=== PATIENT | female | born 1955 | race Caucasian/White ===

== ENCOUNTER 2016-11-10 09:17 | Inpatient (IN) | payer BC ==
[~2016-11-10] VITALS: Ht 165.1 cm; Wt 52.5 kg
[2016-11-10] MEDS ORDERED: ASPIR-TRIN325 M1 PO (09:40)
[2016-11-10 10:43] LABS: HEMATOCRIT 43.1 % (36.0-46.0); MCH 30.4 PG (29.0-34.0); MCHC 34.8 G/DL (30.0-36.0); MCV 87.2 FL (83-99); MEAN PLAT.VOLUME 8.6 uM^3 (9.5-12.4); PLATELET COUNT 349 K/uL (156-360); RBC DIS.WIDTH-CV 13.4 % (11.8-14.6); RBC DIS.WIDTH-SD 42.3 % (39-53); RED BLOOD COUNT 4.94 M/uL (3.80-5.20); WHITE BLOOD COUNT 8.6 K/uL (4.1-10.2)
[2016-11-10 10:52] LABS: CHLORIDE 107 mEq/L (99-109); POTASSIUM 4.4 mEq/L (3.7-5.4); SODIUM 138 mEq/L (136-147)
[2016-11-10 10:53] LABS: D-DIMER ELISA 0.17 mg/L FEU (< 0.57); GLUCOSE 80 mg/dL (70-99)
[2016-11-10 10:55] LABS: ANION GAP 15 MEQ/L (2-14)
[2016-11-10 10:57] LABS: GFR ESTIMATE (CALCULATED) > 59 mL/min/
[2016-11-10 10:58] LABS: UREA NITROGEN (BUN) 18 mg/dL (9-23)
[2016-11-10 11:02] LABS: TROP-I INTERPRETATION NEGATIVE; TROPONIN-I < 0.01 ng/mL (0.0-0.30)
[2016-11-10 15:00] VITALS: BP 124/57
[2016-11-10 19:32] VITALS: BP 138/63
[2016-11-10 23:56] VITALS: BP 128/59
[2016-11-11 03:33] VITALS: BP 110/53
[2016-11-11 08:03] VITALS: BP 120/61
[2016-11-11 14:30] VITALS: BP 122/70
[2016-11-12 00:26] VITALS: BP 114/59
[2016-11-12 16:07] VITALS: BP 117/59
[2016-11-12 23:31] VITALS: BP 107/58
[2016-11-13 04:00] VITALS: BP 110/60
[2016-11-13 08:04] VITALS: BP 114/54
[2016-11-13 17:17] VITALS: BP 122/58
[2016-11-14 00:08] VITALS: BP 97/52
[2016-11-14 08:29] VITALS: BP 125/58
[2016-11-14 17:26] VITALS: BP 107/58
[2016-11-15 00:20] VITALS: BP 100/54
[2016-11-15 07:53] VITALS: BP 116/54
[2016-11-15 13:40] VITALS: BP 106/50
[2016-11-15 23:49] VITALS: BP 99/55
[2016-11-16 07:55] VITALS: BP 119/56
[2016-11-16 15:40] VITALS: BP 101/50
[2016-11-16 23:35] VITALS: BP 110/55
[2016-11-17 04:00] VITALS: BP 106/62
[2016-11-17 07:31] VITALS: BP 122/64
[2016-11-17 11:49] VITALS: BP 102/58
[2016-11-17 16:09] VITALS: BP 110/53
[2016-11-18 00:04] VITALS: BP 113/57
[2016-11-18 08:00] VITALS: BP 131/58
[2016-11-18 16:00] VITALS: BP 147/73
[2016-11-18 20:46] VITALS: BP 122/62
[2016-11-18 23:34] VITALS: BP 115/56
[2016-11-19 04:08] VITALS: BP 113/55
[2016-11-19 07:40] VITALS: BP 129/59
[2016-11-19 09:31] LABS: HEMATOCRIT 36.4 % (36.0-46.0); MCH 30.5 PG (29.0-34.0); MCHC 34.1 G/DL (30.0-36.0); MCV 89.7 FL (83-99); MEAN PLAT.VOLUME 9.2 uM^3 (9.5-12.4); PLATELET COUNT 292 K/uL (156-360); RBC DIS.WIDTH-CV 13.2 % (11.8-14.6); RBC DIS.WIDTH-SD 43.1 % (39-53); RED BLOOD COUNT 4.06 M/uL (3.80-5.20); WHITE BLOOD COUNT 7.1 K/uL (4.1-10.2)
[2016-11-19 09:41] LABS: ANION GAP 9 MEQ/L (2-14); CHLORIDE 102 MEQ/L (99-109); GFR ESTIMATE (CALCULATED) > 59 mL/min/; GLUCOSE 109 mg/dL (70-99); POTASSIUM 4.1 MEQ/L (3.7-5.4); SAMPLE HEMOLYSIS CHECK 0; SAMPLE ICTERIC CHECK 0; SAMPLE LIPEMIA CHECK 0; SODIUM 137 MEQ/L (136-147); UREA NITROGEN (BUN) 14 mg/dL (9-23)
[2016-11-19 15:37] VITALS: BP 135/68
[2016-11-19 22:00] VITALS: BP 130/68
[2016-11-20 00:23] VITALS: BP 101/51
[2016-11-20 08:28] VITALS: BP 118/59
[2016-11-20 20:09] VITALS: BP 95/52
[2016-11-21 00:08] VITALS: BP 104/59
[2016-11-21 11:54] VITALS: BP 95/53
[2016-11-21 16:16] VITALS: BP 97/53
[2016-11-21] MEDS ORDERED: OXYCODONE HCL5 MG PO (17:53)
[2016-11-21] MEDS ORDERED: DOCUSATE SODIU100 MG PO (17:53)
== END 2016-11-21 19:53 | disposition home or self-care (01) | DRG 165 ==
LOC: EME 09:17 → EDOF 10:57 → 3EAST 10:57 → EDOF 11:41 → 3EAST 15:08
PROVIDERS: Emergency Medicine; Thoracic Surgery (Cardiothoracic Vascular Surgery)
DX: J93.83 Other pneumothorax (principal); J44.9 Chronic obstructive pulmonary disease, unspecified; R19.00 Intra-abdominal and pelvic swelling, mass and lump, unspecified site; N83.299 Other ovarian cyst, unspecified side; F17.210 Nicotine dependence, cigarettes, uncomplicated; F12.10 Cannabis abuse, uncomplicated; F41.9 Anxiety disorder, unspecified; J95.812 Postprocedural air leak
CPT/HCPCS: 71010; 71020; 71260; 74177; 80048; 84484; 85027; 85379; 88305; 93005; 94640; 94640 76; 94667; 94668; 94799; 97530 GO; 99202; 99281; 99285; J0690; J1170; J1644; J1650; J2175; J2250; J2405; J2765; J3010; J7030; J7042; J7120